=== PATIENT | male | born 1960 | race Caucasian/White ===

== ENCOUNTER 2022-01-31 18:30 | Emergency (ER) | payer OTHER ==
[2022-01-31 19:07] VITALS: PULSE 81; RESP 18; TEMP 98.6; BMI 25.7
[2022-01-31 20:38] LABS: BASO % 0.6 % (0-2.0); EOS % 0.7 % (0-4.5); HEMOGLOBIN 16.1 GM/dL (11.7-16.9); LYMPH % 24.5 % (8-40); MCH 32.5 pg (25.7-33.7); MCHC 34.9 g/dl (32.0-35.9); MEAN CELL VOLUME 93.1 fl (80-96); MEAN PLT VOLUME 9.6 fl (7.5-11.1); MONO % 8.8 % (3.8-10.2); NEUT % 65.4 % (42.8-82.8); RBC 4.94 M/mm3 (4.00-5.60); RDW 13.5 % (11.9-15.9)
[2022-01-31 20:55] LABS: CALCIUM 8.6 mg/dL (8.5-10.1)
[2022-01-31 20:56] LABS: ALBUMIN 3.9 g/dl (3.4-5.0)
[2022-01-31 20:59] LABS: CREATININE 0.9 mg/dL (0.55-1.3)
[2022-01-31 21:01] LABS: BILIRUBIN,TOTAL 0.5 mg/dL (0.2-1); TOT PROT 7.6 g/dl (6.4-8.2)
[2022-01-31] MEDS ORDERED: ACETAMINOPHEN 1000 MG/100 ML BAG IVPB ONE (21:32)
[2022-01-31 21:39] LABS: PLATELET COUNT 186 10^3/uL (134-434); PLATELET ESTIMATE ADEQUATE
[2022-01-31] MEDS ORDERED: ACETAMINOPHEN INJECTION 100 ML IVPB ONE (21:44)
[2022-01-31] MEDS ORDERED: amLODIPine BESYLATE 10 MG TABLET (FP) PO ONE (21:45)
[2022-01-31] MEDS ORDERED: amLODIPine BESYLATE 10 MG TABLET (FP) ONE (21:48)
[2022-01-31 22:12] VITALS: BP 168/96
[2022-01-31 22:32] LABS: PH,URINE 5.5 (5.0-8.0); URINE APPEARANCE CLEAR; URINE BILIRUBIN NEGATIVE (NEGATIVE); URINE COLOR YELLOW; URINE GLUCOSE (UA) NEGATIVE (NEGATIVE); URINE KETONE NEGATIVE (NEGATIVE); URINE LEUK ESTERASE NEGATIVE (NEGATIVE); URINE NITRITE NEGATIVE (NEGATIVE); URINE PROTEIN NEGATIVE (NEGATIVE); URINE UROBILINOGEN 0.2 mg/dL (0.2-1.0)
== END 2022-01-31 22:36 | disposition home or self-care (01) ==
LOC: JER 18:30
PROC: 3E033NZ Introduction of Analgesics, Hypnotics, Sedatives into Peripheral Vein, Percutaneous Approach (ICD-10-PCS; principal; 2022-01-31)
DX: R51.9 Headache, unspecified (principal); I10 Essential (primary) hypertension
CPT/HCPCS: 36415; 70450-TC; 71046-TC-FY; 80053; 81003; 84484; 85025; 87086; 87186; 93005; 93010; 99285-25